=== PATIENT | female | born 1995 | race Two or more races ===

== ENCOUNTER 2022-03-15 12:18 | Inpatient (IN) | payer BC ==
[2022-03-15 15:47] LABS: BASO % 0.5 % (0-2.0); EOS % 2.1 % (0-4.5); HEMATOCRIT 39.2 % (32.4-45.2); LYMPH % 36.1 % (8-40); MCH 29.4 pg (25.7-33.7); MCHC 33.2 g/dl (32.0-36.0); MEAN CELL VOLUME 88.5 fl (80-96); MONO % 6.5 % (3.8-10.2); NEUT % 54.8 % (42.8-82.8); PLATELET COUNT 420 10^3/uL (134-434); RBC 4.43 M/mm3 (3.60-5.2); RDW 14.4 % (11.6-15.6); WHITE BLOOD COUNT 9.1 K/mm3 (4.0-10.0)
[2022-03-15 16:06] LABS: CALCIUM 9.1 mg/dL (8.5-10.1)
[2022-03-15 16:08] LABS: ALBUMIN 3.3 g/dl (3.4-5.0); BLOOD UREA NITROGEN 9.6 mg/dL (7-18)
[2022-03-15 16:10] LABS: CREATININE 0.7 mg/dL (0.55-1.3)
[2022-03-15 16:11] LABS: BILIRUBIN,TOTAL 0.9 mg/dL (0.2-1); TOT PROT 6.5 g/dl (6.4-8.2)
[2022-03-15] MEDS ORDERED: morphine SULFATE 4 MG/ML VIAL ONE (17:57)
[2022-03-15] MEDS ORDERED: ONDANSETRON 4 MG/2 ML VIAL IVPUSH ONE (18:04)
[2022-03-15] MEDS ORDERED: morphine CARPU-JECT 4 MG/1 ML DISP.SYRIN IVPUSH ONE (18:04)
[2022-03-15] MEDS ORDERED: ONDANSETRON 4 MG/2 ML VIAL ONE ×2 (18:22→20:08)
[2022-03-15 21:00] LABS: BILIRUBIN,DIRECT 0.4 mg/dL (0.0-0.2)
[2022-03-15] MEDS ORDERED: IBUPROFEN 600 MG TABLET (FP) PO PRN (23:48)
[2022-03-16] MEDS ORDERED: ONDANSETRON 4 MG TABLET PO PRN (00:25)
[2022-03-16] MEDS ORDERED: MELATONIN 5 MG TABLETS PO PRN (00:31)
[2022-03-16] MEDS ORDERED: diphenhydrAMINE HCL 25 MG CAPSULE (FP) PO PRN ×2 (00:32→01:16)
[2022-03-16 01:26] LABS: EPI CELLS 32 /uL (0-25.1); HYALINE CASTS 8 /uL (0-3.1); URINE APPEARANCE CLEAR; URINE BACTERIA 160 /uL (0-1359); URINE BILIRUBIN 1+ (NEGATIVE); URINE COLOR DK YELLOW; URINE GLUCOSE (UA) NEGATIVE (NEGATIVE); URINE KETONE 2+ (NEGATIVE); URINE LEUK ESTERASE TRACE (NEGATIVE); URINE NITRITE POSITIVE (NEGATIVE); URINE PROTEIN 2+ (NEGATIVE); URINE RBC 69 /uL (0-23.9); URINE WBC 29 /uL (0-25.8)
[2022-03-16] MEDS: SODIUM CHLORIDE 1,000 ML IV SCH ×2 (02:32→23:45)
[2022-03-16] MEDS: LEVOTHYROXINE NA 75 MCG TABLET (FP) PO SCH (07:45)
[2022-03-16 08:29] LABS: HEMATOCRIT 36.2 % (32.4-45.2); HEMOGLOBIN 12.2 GM/dL (10.7-15.3); MCH 29.7 pg (25.7-33.7); MCHC 33.7 g/dl (32.0-36.0); MEAN CELL VOLUME 88.2 fl (80-96); PLATELET COUNT 355 10^3/uL (134-434); RBC 4.11 M/mm3 (3.60-5.2); RDW 14.6 % (11.6-15.6); WHITE BLOOD COUNT 7.5 K/mm3 (4.0-10.0)
[2022-03-16 08:57] LABS: CALCIUM 8.6 mg/dL (8.5-10.1)
[2022-03-16 08:59] LABS: ALBUMIN 2.8 g/dl (3.4-5.0); BLOOD UREA NITROGEN 12.2 mg/dL (7-18); MAGNESIUM 1.7 mg/dL (1.8-2.4)
[2022-03-16 09:02] LABS: BILIRUBIN,TOTAL 1.2 mg/dL (0.2-1); CREATININE 0.8 mg/dL (0.55-1.3); PHOSPHOROUS 3.8 mg/dL (2.5-4.9); TOT PROT 5.7 g/dl (6.4-8.2)
[2022-03-16] MEDS ORDERED: FAMOTIDINE 10 MG TABLET PO SCH (10:00)
[2022-03-16] MEDS ORDERED: FAMOTIDINE 10 MG TABLET ONE (10:32)
[2022-03-16] MEDS ORDERED: LEVOTHYROXINE NA 75 MCG TABLET (FP) ONE (10:32)
[2022-03-16] MEDS ORDERED: methylPREDNISolone NA SUCC 40 MG/1 ML VIAL ONE (10:33)
[2022-03-16] MEDS ORDERED: FAMOTIDINE 20 MG/50 ML IVPB 20 MG/50 ML MG IVPB ONE (10:33)
[2022-03-16] MEDS ORDERED: ENOXAPARIN NA (PORCINE) 40 MG/0.4 ML DISP.SYRIN SQ ONE (10:33)
[2022-03-16] MEDS ORDERED: ONDANSETRON 4 MG/2 ML VIAL ONE (11:02)
[2022-03-16] MEDS ORDERED: IBUPROFEN 600 MG TABLET (FP) PO ONE (11:02)
[2022-03-16] MEDS: methylPREDNISolone NA SUCC 1000 MG/8 ML VIAL IVPB SCH (11:10)
[2022-03-16] MEDS: ONDANSETRON 4 MG/2 ML VIAL IVPUSH SCH (11:10)
[2022-03-16] MEDS: FAMOTIDINE 20 MG/50 ML IVPB 20 MG/50 ML MG IVPB SCH (11:10)
[2022-03-16] MEDS: ENOXAPARIN NA (PORCINE) 40 MG/0.4 ML DISP.SYRIN SQ SCH (11:10)
[2022-03-16] MEDS ORDERED: MAGNESIUM 2GM/50ML STERILE WATER IVPB IVPB ONE (17:39)
[2022-03-16 20:58] VITALS: BMI 28.7
[2022-03-16] MEDS ORDERED: IBUPROFEN 400 MG TABLET (FP) PO PRN (23:20)
[2022-03-16] MEDS ORDERED: MAGNESIUM SULF 50% (8.12 MEQ/2 ML-1 GM VIAL) IVPB ONE (23:45)
[2022-03-17] MEDS: ONDANSETRON 4 MG/2 ML VIAL IVPUSH SCH ×4 (01:36→17:32)
[2022-03-17] MEDS: LEVOTHYROXINE NA 75 MCG TABLET (FP) PO SCH (07:00)
[2022-03-17 08:28] LABS: BASO % 0.3 % (0-2.0); EOS % 0.5 % (0-4.5); LYMPH % 35.3 % (8-40); MCH 29.3 pg (25.7-33.7); MCHC 33.5 g/dl (32.0-36.0); MEAN CELL VOLUME 87.7 fl (80-96); MEAN PLT VOLUME 8.1 fl (7.5-11.1); MONO % 6.2 % (3.8-10.2); NEUT % 57.7 % (42.8-82.8); PLATELET COUNT 368 10^3/uL (134-434); RDW 14.3 % (11.6-15.6); WHITE BLOOD COUNT 10.8 K/mm3 (4.0-10.0)
[2022-03-17] MEDS: SODIUM CHLORIDE 1,000 ML IV SCH (08:41)
[2022-03-17 09:05] LABS: BLOOD UREA NITROGEN 8.8 mg/dL (7-18); CALCIUM 8.6 mg/dL (8.5-10.1)
[2022-03-17 09:06] LABS: ALBUMIN 2.8 g/dl (3.4-5.0); CREATININE 0.7 mg/dL (0.55-1.3)
[2022-03-17 09:07] LABS: TOT PROT 5.6 g/dl (6.4-8.2)
[2022-03-17 09:10] LABS: PHOSPHOROUS 3.2 mg/dL (2.5-4.9)
[2022-03-17 09:11] LABS: BILIRUBIN,TOTAL 0.5 mg/dL (0.2-1)
[2022-03-17] MEDS: FAMOTIDINE 20 MG/50 ML IVPB 20 MG/50 ML MG IVPB SCH (09:31)
[2022-03-17] MEDS: ENOXAPARIN NA (PORCINE) 40 MG/0.4 ML DISP.SYRIN SQ SCH (09:32)
[2022-03-17] MEDS: methylPREDNISolone NA SUCC 1000 MG/8 ML VIAL IVPB SCH (09:32)
[2022-03-17 14:56] VITALS: BP 94/55; PULSE 86; RESP 18; TEMP 98.4
[2022-03-18] MEDS ORDERED: predniSONE 20 MG TABLET (UD) PO SCH (10:00)
[2022-03-22 14:09] LABS: SOLUBLE LIVER ANTIGEN ABS IgG 2.5 units (0.0-20.0)
== END 2022-03-17 18:43 | disposition home or self-care (01) | DRG 392 ==
LOC: JER 12:18 → JERBED 17:47 → J7W 03-16 18:32
PROVIDERS: ADMIT Hospitalist; ATTEND Internal Medicine
DX: R19.7 Diarrhea, unspecified (principal); K80.00 Calculus of gallbladder with acute cholecystitis without obstruction; B17.9 Acute viral hepatitis, unspecified; K76.9 Liver disease, unspecified; E03.9 Hypothyroidism, unspecified; R74.01 Elevation of levels of liver transaminase levels; R31.9 Hematuria, unspecified
CPT/HCPCS: 0241U-QW; 36415; 76705-TC; 80053; 80076; 80307; 81003; 82150; 82977; 83516; 83690; 83735; 84100; 84703; 85025; 85027; 86038; 86705; 86708; 86709; 87086; 87517; 87902; 99285-25

== ENCOUNTER 2024-02-16 14:09 | Emergency (ER) | payer BC, OTHER ==
[2024-02-16 14:17] VITALS: BP 109/68; PULSE 108; RESP 18; TEMP 97.6; BMI 31.4
[2024-02-16] MEDS: LIDOCAINE 4% PATCH TP ONE (15:00)
[2024-02-16] MEDS: METHOCARBAMOL 500 MG TABLET PO ONE (15:00)
[2024-02-16] MEDS: KETOROLAC TROMETHAMINE 15 MG/ML VIAL IM ONE (15:00)
[2024-02-16] MEDS ORDERED: LIDOCAINE 4% PATCH TP ONE (16:06)
[2024-02-16] MEDS ORDERED: ACETAMINOPHEN 325 MG TABLET (FP) ONE (16:06)
[2024-02-16] MEDS ORDERED: METHOCARBAMOL 500 MG TABLET ONE (16:06)
[2024-02-16] MEDS ORDERED: KETOROLAC TROMETHAMINE 15 MG/ML VIAL ONE ×2 (16:10→16:11)
[2024-02-16] MEDS: ACETAMINOPHEN 325 MG TABLET (FP) PO ONE (17:24)
== END 2024-02-16 16:00 | disposition home or self-care (01) ==
LOC: JER 14:09
PROC: 3E0233Z Introduction of Anti-inflammatory into Muscle, Percutaneous Approach (ICD-10-PCS; principal; 2024-02-16)
DX: M79.601 Pain in right arm (principal); R20.0 Anesthesia of skin; R20.2 Paresthesia of skin
CPT/HCPCS: 99284-25